=== PATIENT | male | born 1940 | race Hispanic/Latino ===

== ENCOUNTER 2018-05-20 15:15 | Inpatient (IN) | payer OTHER ==
[~2018-05-20] VITALS: Ht 157.5 cm; Wt 81.6 kg
[2018-05-21] VITALS (23 sets, daily range): BP systolic 93–200; BP diastolic 55–104
[2018-05-21 08:05] LABS: EOSINOPHILS % (AUTO) 5.5 % (0.0-8.0); HEMATOCRIT 38.1 % (42-54); LYMPHOCYTES % (AUTO) 22.6 % (21.0-51.0); MEAN CORPUSCULAR HEMOGLOBIN 26.3 pg (27.0-33.0); MEAN CORPUSCULAR HGB CONC 32.8 g/dL (32.0-36.0); MEAN CORPUSCULAR VOLUME 80.1 fL (79-99); NEUTROPHILS % (AUTO) 56.9 % (40.0-77.0); PLATELET COUNT (AUTO) 155 K/uL (130-400); RED BLOOD CELL COUNT(AUTO) 4.76 MIL/uL (4.50-6.20); WHITE BLOOD COUNT (AUTO) 6.7 K/uL (4.8-10.8)
[2018-05-21] MEDS ORDERED: PHARMACY COMMUNICATION MISC SCH (08:15)
[2018-05-21] MEDS ORDERED: HYDR25TA PO (08:16)
[2018-05-21] MEDS ORDERED: INSU10VI4 SQ (08:16)
[2018-05-21] MEDS ORDERED: CLON0.1T PO (08:16)
[2018-05-21] MEDS ORDERED: LOSA100T20 PO (08:16)
[2018-05-21] MEDS ORDERED: LORA1TAB3 PO (08:16)
[2018-05-21] MEDS ORDERED: METO25TA6 PO (08:16)
[2018-05-21 08:17] LABS: CREATININE 1.5 mg/dL (0.5-1.5); POTASSIUM 3.7 mmol/L (3.5-5.1)
[2018-05-21 08:22] LABS: INR 1.01 (0.85-1.15); PARTIAL THROMBOPLASTIN TIME 26.5 SEC (26.3-35.5); PROTHROMBIN TIME 10.6 SEC (9.6-11.6)
[2018-05-21] MEDS: CEFAZOLIN SODIUM 1 GM VIAL IVP SCH ×3 (08:30→18:23)
[2018-05-21 08:47] LABS: APPEARANCE,URINE Turbid (CLEAR); BILIRUBIN,URINE Negative (NEGATIVE); COLOR,URINE Yellow (YELLOW); GLUCOSE, URINE (UA) Negative (NEGATIVE); KETONES,URINE Negative (NEGATIVE); LEUKOCYTE ESTERASE ,URINE Negative (NEGATIVE); NITRATE,URINE Negative (NEGATIVE); OCCULT BLOOD,URINE Negative (NEGATIVE); PROTEIN,URINE POS 2+ (NEGATIVE); UROBILINOGEN,URINE 0.2 mg/dL (0.2-1.0)
[2018-05-21 08:57] LABS: BACTERIA,URINE Few /HPF (None Seen); RBC,URINE None Seen /HPF (0-1); WBC,URINE 0-1 /HPF (0-1)
[2018-05-21 08:58] LABS: AMORPHOUS SEDIMENT,UR Many /LPF (None Seen); SQUAMOUS EPITHELIAL CELL,UR Rare /HPF (0-2)
[2018-05-21] MEDS ORDERED: SODIUM CHLORIDE 0.9% 1000ML 1,000 ML IV ONE (08:58)
[2018-05-21] MEDS ORDERED: FENTANYL CITRATE PF 50 MCG/1 ML 2ML VIAL ONE ×2 (09:47→13:57)
[2018-05-21] MEDS ORDERED: EPHEDRINE SULFATE 50 MG/ML AMPULE ONE (09:47)
[2018-05-21] MEDS ORDERED: PROPOFOL 10 MG/ML 20ML VIAL IV ONE (09:47)
[2018-05-21] MEDS ORDERED: LIDOCAINE PF 2% 5ML ABBOJECT ONE (09:47)
[2018-05-21] MEDS ORDERED: ONDANSETRON HCL 4 MG/2 ML VIAL ONE (09:47)
[2018-05-21] MEDS ORDERED: FAMOTIDINE/PF 20 MG/2 ML VIAL IV ONE (09:49)
[2018-05-21] MEDS ORDERED: ROPIVACAINE 0.5% 5MG/ML 30ML IJ ONE (09:49)
[2018-05-21] MEDS ORDERED: CELECOXIB 200 MG CAP ONE (10:02)
[2018-05-21] MEDS ORDERED: ACETAMINOPHEN EXTRA STRENGTH 500 MG TABLET ONE (10:04)
[2018-05-21] MEDS ORDERED: KETOROLAC TROMETHAMINE 15MG/ML ONE (10:04)
[2018-05-21] MEDS ORDERED: OXYCODONE HCL 10 MG TAB.SR.12H PO ONE (10:04)
[2018-05-21] MEDS ORDERED: BUPIVACAINE/EPI/PF 0.25% 30ML VIAL IJ ONE (10:18)
[2018-05-21] MEDS ORDERED: TRANEXAMIC ACID 1000MG/10ML IV ONE (10:18)
[2018-05-21] MEDS ORDERED: ALBUMIN (HUMAN) 5% 250 ML IV ONE (10:26)
[2018-05-21] MEDS ORDERED: MIDAZOLAM HCL 1 MG/ML 2ML VIAL ONE ×2 (10:27→15:08)
[2018-05-21] MEDS ORDERED: CEFAZOLIN SODIUM 1 GM VIAL ONE ×2 (10:27→13:01)
[2018-05-21] MEDS ORDERED: GLYCOPYRROLATE 1 MG/5 ML SYRINGE ONE (10:42)
[2018-05-21] MEDS ORDERED: VERAPAMIL HCL 2.5 MG/ML VIAL ONE (11:56)
[2018-05-21] MEDS: SODIUM CHLORIDE 0.9% 1000ML 1,000 ML IV SCH ×2 (13:11→23:01)
[2018-05-21] MEDS: ACETAMINOPHEN EXTRA STRENGTH 500 MG TABLET PO SCH ×2 (13:15→21:39)
[2018-05-21] MEDS ORDERED: CALCIUM CARBONATE 500 MG TABLET PO PRN (13:15)
[2018-05-21] MEDS ORDERED: KETOROLAC TROMETHAMINE 15MG/ML IV PRN (13:15)
[2018-05-21] MEDS ORDERED: ONDANSETRON HCL 4 MG/2 ML VIAL IVP PRN (13:15)
[2018-05-21] MEDS ORDERED: FERROUS FUMARATE 324 MG TABLET PO PRN (13:15)
[2018-05-21] MEDS ORDERED: TEMAZEPAM 15 MG CAPSULE PO PRN (13:15)
[2018-05-21] MEDS ORDERED: DiphenhydrAMINE HCL 50 MG/ML VIAL IVP PRN (13:15)
[2018-05-21] MEDS ORDERED: POTASSIUM CHLORIDE 20 MEQ ERTAB PO PRN (13:15)
[2018-05-21] MEDS ORDERED: POTASSIUM CHLORIDE 20MEQ/100ML 100 ML IV PRN (13:15)
[2018-05-21] MEDS ORDERED: OXYCODONE HCL 5 MG TAB PO PRN (13:15)
[2018-05-21] MEDS ORDERED: LIDOCAINE HCL-MPF 1% 2ML VIAL IVP PRN (13:15)
[2018-05-21] MEDS ORDERED: TRAMADOL HCL 50 MG TABLET PO PRN (13:15)
[2018-05-21] MEDS ORDERED: POTASSIUM CHLORIDE 10% ELIXIR 20 MEQ/15 ML UDCUP PO PRN (13:15)
[2018-05-21] MEDS ORDERED: HYDRALAZINE HCL 20 MG/ML VIAL ONE ×4 (13:31→15:04)
[2018-05-21] MEDS ORDERED: LORAZEPAM 1 MG TABLET PO PRN (18:45)
[2018-05-21] MEDS: CELECOXIB 200 MG CAP PO SCH (21:38)
[2018-05-21] MEDS: ASPIRIN 325 MG TABLET PO SCH (21:38)
[2018-05-21] MEDS: PREGABALIN 25 MG CAP PO SCH (21:38)
[2018-05-21] MEDS: METOPROLOL TARTRATE 25 MG TAB PO SCH (21:39)
[2018-05-21] MEDS: CLONIDINE HCL 0.1 MG TABLET PO SCH (21:40)
[2018-05-21] MEDS: INSULIN HUMULIN 70/30 100 UNIT/ML 3ML SQ SCH (21:46)
[2018-05-22] MEDS: CEFAZOLIN SODIUM 1 GM VIAL IVP SCH (02:06)
[2018-05-22 04:09] LABS: HEMATOCRIT 30.6 % (42-54); MEAN CORPUSCULAR HEMOGLOBIN 27.6 pg (27.0-33.0); MEAN CORPUSCULAR VOLUME 80.9 fL (79-99); PLATELET COUNT (AUTO) 140 K/uL (130-400); RED BLOOD CELL COUNT(AUTO) 3.79 MIL/uL (4.50-6.20); RED CELL DISTRIBUTION WIDTH 14.6 % (11.0-15.5); WHITE BLOOD COUNT (AUTO) 8.1 K/uL (4.8-10.8)
[2018-05-22 04:19] LABS: CREATININE 1.8 mg/dL (0.5-1.5); POTASSIUM 3.7 mmol/L (3.5-5.1)
[2018-05-22] MEDS: ACETAMINOPHEN EXTRA STRENGTH 500 MG TABLET PO SCH ×3 (04:35→21:11)
[2018-05-22 05:00] VITALS: BP 136/69
[2018-05-22 07:25] VITALS: BP 124/78
[2018-05-22] MEDS: ASPIRIN 325 MG TABLET PO SCH ×2 (07:43→21:02)
[2018-05-22] MEDS: FAMOTIDINE 20MG TAB 20 MG TAB PO SCH (07:44)
[2018-05-22] MEDS: TAMSULOSIN HCL 0.4 MG CAP.ER.24H PO SCH (07:44)
[2018-05-22] MEDS: PREGABALIN 25 MG CAP PO SCH ×2 (07:44→21:02)
[2018-05-22] MEDS: LOSARTAN 100 MG TABLET PO SCH (07:44)
[2018-05-22] MEDS: CELECOXIB 200 MG CAP PO SCH ×2 (07:44→21:02)
[2018-05-22] MEDS: HYDROCHLOROTHIAZIDE 25 MG TABLET PO SCH (07:44)
[2018-05-22] MEDS: POLYETHYLENE GLYCOL 3350 17 GM POWD.PACK PO SCH (07:44)
[2018-05-22] MEDS: METOPROLOL TARTRATE 25 MG TAB PO SCH ×2 (07:44→21:10)
[2018-05-22] MEDS: OXYCODONE HCL 5 MG TAB PO PRN ×2 (07:45→10:15)
[2018-05-22] MEDS: CLONIDINE HCL 0.1 MG TABLET PO SCH ×3 (07:48→21:04)
[2018-05-22] MEDS: INSULIN HUMULIN 70/30 100 UNIT/ML 3ML SQ SCH ×2 (08:02→21:08)
[2018-05-22] MEDS: SODIUM CHLORIDE 0.9% 1000ML 1,000 ML IV SCH (09:11)
[2018-05-22 11:24] VITALS: BP 142/71
[2018-05-22 16:00] VITALS: BP 147/69
[2018-05-22 23:36] VITALS: BP 142/67
[2018-05-23] MEDS: ACETAMINOPHEN EXTRA STRENGTH 500 MG TABLET PO SCH ×2 (05:25→12:36)
[2018-05-23 08:00] VITALS: BP 178/88
[2018-05-23] MEDS: POLYETHYLENE GLYCOL 3350 17 GM POWD.PACK PO SCH (08:52)
[2018-05-23] MEDS: CELECOXIB 200 MG CAP PO SCH (08:52)
[2018-05-23] MEDS: ASPIRIN 325 MG TABLET PO SCH (08:52)
[2018-05-23] MEDS: PREGABALIN 25 MG CAP PO SCH (08:53)
[2018-05-23] MEDS: FAMOTIDINE 20MG TAB 20 MG TAB PO SCH (08:53)
[2018-05-23] MEDS: TAMSULOSIN HCL 0.4 MG CAP.ER.24H PO SCH (08:53)
[2018-05-23] MEDS: METOPROLOL TARTRATE 25 MG TAB PO SCH (08:53)
[2018-05-23] MEDS: CLONIDINE HCL 0.1 MG TABLET PO SCH ×2 (08:54→12:56)
[2018-05-23] MEDS: HYDROCHLOROTHIAZIDE 25 MG TABLET PO SCH (08:54)
[2018-05-23] MEDS: LOSARTAN 100 MG TABLET PO SCH (08:54)
[2018-05-23] MEDS: INSULIN HUMULIN 70/30 100 UNIT/ML 3ML SQ SCH (09:02)
[2018-05-23 11:00] VITALS: BP 191/74
[2018-05-23] MEDS ORDERED: DEXTROSE 50%-WATER 50 ML DISP.SYRIN IV PRN (12:15)
[2018-05-23] MEDS ORDERED: GLUCAGON 1MG KIT 1 MG ML IM PRN (12:15)
[2018-05-23] MEDS ORDERED: HYDR-309 PO (12:18)
[2018-05-23] MEDS ORDERED: ASPI-1012 PO (12:18)
[2018-05-23] MEDS ORDERED: INSULIN HUMULIN R 100 UNIT/ML 3ML ONE (12:35)
[2018-05-23 12:56] VITALS: BP 191/74
[2018-05-23] MEDS ORDERED: INSULIN HUMULIN R 100 UNIT/ML 3ML SQ SCH (16:30)
[2018-05-24] MEDS ORDERED: BISACODYL 10 MG SUPP.RECT RC PRN (13:15)
== END 2018-05-23 17:32 | disposition home health service (06) | DRG 470 ==
LOC: EDSTATUS 15:15 → DAHIP 05-21 07:19 → 4AH 05-21 15:18
PROVIDERS: ADMIT Orthopaedic Surgery; ATTEND Orthopaedic Surgery
PROC: 0SRC0J9 Replacement of Right Knee Joint with Synthetic Substitute, Cemented, Open Approach (ICD-10-PCS; principal; 2018-05-21 10:38)
DX: M17.11 Unilateral primary osteoarthritis, right knee (principal); E11.9 Type 2 diabetes mellitus without complications; I10 Essential (primary) hypertension; F34.1 Dysthymic disorder; E03.9 Hypothyroidism, unspecified; G43.909 Migraine, unspecified, not intractable, without status migrainosus; E78.5 Hyperlipidemia, unspecified; F03.90 Unspecified dementia, unspecified severity, without behavioral disturbance, psychotic disturbance, mood disturbance, and anxiety; F41.1 Generalized anxiety disorder; F32.9 Major depressive disorder, single episode, unspecified; H04.123 Dry eye syndrome of bilateral lacrimal glands; G89.29 Other chronic pain; I25.10 Atherosclerotic heart disease of native coronary artery without angina pectoris; H91.91 Unspecified hearing loss, right ear; K21.9 Gastro-esophageal reflux disease without esophagitis
CPT/HCPCS: 36415; 80048; 81001; 82948; 85025; 85027; 85610; 85730; 88305; 88311; 96374; A4218; J0360; J0690; J1815; J1885; J2001; J2250; J2405; J2704; J2795; J3010; J3490; J7030; P9045

== ENCOUNTER → 2021-06-09 | Outpatient (CLI) | payer OTHER ==
[~2021-06-09] MED LIST: AMLO-258 PO; ASPI-1012 PO; CLON0.1T PO; HYDR-4457 PO; HYDR25TA PO; INSU100V12 SQ; LORA1TAB3 PO; LOSA100T58 PO; METO25TA6 PO
== END | disposition home or self-care (01) ==
LOC: SHCH 11:03
PROVIDERS: ATTEND Internal Medicine Cardiovascular Disease
DX: R55 Syncope and collapse (principal); I87.2 Venous insufficiency (chronic) (peripheral); I10 Essential (primary) hypertension; R06.02 Shortness of breath; E66.9 Obesity, unspecified; E78.5 Hyperlipidemia, unspecified; E11.9 Type 2 diabetes mellitus without complications; Z95.2 Presence of prosthetic heart valve
CPT/HCPCS: 93306; 93356

== ENCOUNTER → 2021-08-10 | Outpatient (CLI) | payer OTHER ==
[2021-08-10 10:58] LABS: CREATININE 1.7 mg/dL (0.5-1.5)
== END | disposition home or self-care (01) ==
LOC: LAB 09:39
PROVIDERS: ATTEND Internal Medicine Cardiovascular Disease
DX: I73.9 Peripheral vascular disease, unspecified (principal)
CPT/HCPCS: 36415; 82565; 84520